=== PATIENT | male | born 1970 | race Caucasian/White ===

== ENCOUNTER 2024-05-05 17:40 | Emergency (ER) | payer OTHER ==
[2024-05-05] MEDS: EPINEPHrine 1 MG/ML SDV IM ONE (17:58)
[2024-05-05] MEDS: diphenhydrAMINE 50 MG/ML SDV IVPUSH ONE (18:15)
[2024-05-05] MEDS: Sodium Chloride 0.9% 1,000 ML IV ONE (18:15)
[2024-05-05] MEDS: Famotidine 20 MG/2 ML SDV IVPUSH ONE (18:16)
[2024-05-05] MEDS: methylPREDNISolone Sodium Succinate 125 MG/2 ML SDV ONE (18:17)
[2024-05-05] MEDS: METHYLPREDNISOLONE SOD SUCC IV ONE (18:19)
[2024-05-05] MEDS: SODIUM CHLORIDE 0.9% IV ONE (18:19)
[2024-05-05] MEDS: methylPREDNISolone Sodium Succinate 125 MG/2 ML SDV IVPUSH ONE (18:19)
[2024-05-05] MEDS: Sodium Chloride 0.9% 10 ML Syringe FLUSH PRN (18:20)
[2024-05-05 18:34] LABS: BASOPHILS PERCENT AUTO 0.2 % (0.0-1.0); EOSINOPHILS ABSOLUTE AUTO 0.2 K/mm3 (0.0-0.4); EOSINOPHILS PERCENT AUTO 1.3 % (0.0-6.0); HEMATOCRIT 47.7 % (42.0-52.0); HEMOGLOBIN 16.9 gm/dl (14.0-18.0); IMMATURE GRAN ABSOLUTE AUTO 0.05 K/mm3 (0.00-0.05); IMMATURE GRAN PERCENT AUTO 0.4 % (0.0-0.4); LYMPHOCYTES ABSOLUTE AUTO 5.5 K/mm3 (1.0-4.8); LYMPHOCYTES PERCENT AUTO 41.4 % (24.0-44.0); MEAN CORPUSCULAR HEMOGLOBIN 31.8 pg (28.0-32.0); MEAN CORPUSCULAR HGB CONC 35.4 g/dl (32.0-36.0); MEAN CORPUSCULAR VOLUME 89.7 fl (83.0-99.0); MONOCYTES PERCENT AUTO 7.7 % (0.0-8.0); NEUTROPHILS ABSOLUTE AUTO 6.5 K/mm3 (1.8-7.7); PLATELET COUNT,PLT 253 K/mm3 (150-400); RED BLOOD CELL COUNT 5.32 M/mm3 (4.52-5.90)
[2024-05-05 19:00] LABS: A/G RATIO 1.3 (1-2); ALANINE AMINOTRANSFERASE,ALT 34 U/L (16-63); ALKALINE PHOSPHATASE 76 U/L (46-116); ANION GAP 14.8 (5-15); ASPARTATE AMNIOTRANSFERASE,AST 21 U/L (15-37); BILIRUBIN TOTAL 0.5 mg/dL (0.2-1.0); BLOOD UREA NITROGEN,BUN 13 mg/dL (7-18); BUN/CREATININE RATIO 11.8 (14-18); CALCIUM 8.6 mg/dL (8.5-10.1); CARBON DIOXIDE,CO2 26 mEq/L (21-32); CHLORIDE,CL 101 mEq/L (98-107); CREATININE 1.1 mg/dL (0.7-1.3); EST CRCL DRUG DOSING (CG) 82.03 mL/min; ESTIMATED GFR 81 mL/min (>60); GLUCOSE RANDOM 166 mg/dL (70-99); POTASSIUM,K 3.8 mEq/L (3.5-5.1); SODIUM,NA 138 mEq/L (136-145)
[2024-05-05 19:02] LABS: TROPONIN I HIGH SENSITIVITY < 4 pg/mL (<=76)
[2024-05-05] MEDS: Albuterol 0.083% 2.5 MG/3 ML Neb Soln NEB ONE (20:25)
== END 2024-05-06 00:42 | disposition home or self-care (01) ==
LOC: JD.ED 17:40
DX: T78.2XXA Anaphylactic shock, unspecified, initial encounter (principal); Z91.030 Bee allergy status; Z79.899 Other long term (current) drug therapy
CPT/HCPCS: 36415; 71046; 80053; 84484; 85025; 94640; 96372; 96374; 96375; 99285; J0171; J1200; J2919; J3490; J7030; 99284; J7620-GY